=== PATIENT | female | born 1990 | race Caucasian/White ===

== ENCOUNTER 2018-10-03 12:35 | Emergency (ER) | payer MEDICAID, SELFPAY ==
[2018-10-03 12:36] VITALS: BP 111/75; PULSE 93; RESP 13; TEMP 36.6; O2SAT 99; BMI 21.7
--- NOTE | 2018-10-03 12:55 | CT_ITS ---
STUDY: CT ABDOMEN AND PELVIS WITHOUT CONTRAST REASON FOR EXAM: Female, 27 years old. Nausea and vomiting. RADIATION DOSAGE (If Supplied By Facility): CTDIvol = ( 8.40 ) mGy, DLP = ( 414.13 ) mGycm TECHNIQUE: Transaxial images were obtained from the dome of the diaphragm to the symphysis pubis without oral contrast, and without intravenous contrast. Sagittal and coronal images were reconstructed. Individualized dose optimization techniques were used for this CT. COMPARISON: None. FINDINGS: The visualized lung bases are unremarkable. The visualized portions of the heart are within normal limits. Normal liver. Normal gallbladder and extrahepatic biliary system. Normal spleen. Normal pancreas. Normal bilateral adrenal glands. Normal right kidney. Normal left kidney. Normal visualized stomach. Normal small intestine. Normal colon. The appendix is visualized and appears normal. Normal abdominal aorta. Normal inferior vena cava. Normal retroperitoneum. Normal urinary bladder. IUD is seen within the uterus. Normal abdominal wall. Normal osseous structures. CT/Abdomen/Pelvis without Cont IMPRESSION: No acute abnormality is seen. An IUD is seen within the uterus. Electronically Signed: Orville Mayfield, at 14:24 EDT , Service support ,
--- NOTE | 2018-10-03 13:00 | ED.VISSUMM ---
- ER Visit Summary Date of Service: 10/03/18 Chief Complaint: Abdominal and back pain History of Present Illness: The patient is a 27 F who presents with back and abdominal pain that is been getting worse over the past 4 days. Patient states she was seen recently diagnosed with a urinary tract infection. Patient states she is on Macrobid. Patient states she was also given prescription for Pyridium and Vicodin for pain. Patient describes her pain as throbbing and aching. Patient states the pain is over the lower abdomen and lower back. Patient states nothing makes it better or worse. Patient admits to a low-grade fever of 100. Patient admits to nausea but denies any vomiting. Physical Examination: Vital signs are stable. Patient is afebrile. Patient is in no acute distress. Oral mucosa is pink and moist. Neck is supple. Trachea is midline. There is no JVD noted. Heart was regular rate and rhythm. Lungs are clear and equal bilaterally. Abdomen is soft. Bowel sounds are normal. There is some lower abdominal tenderness. There is no rebound or guarding noted. Cranial nerves II through XII are intact. There are no focal motor or sensory deficit noted. Test Results: CBC, conference of metabolic profile, serum hCG, and urinalysis were obtained and were all within normal limits. CT scan of the abdomen and pelvis was obtained and was normal. Emergency Department Course and Treatment: Patient given IV fluids, morphine, and Zofran. Patient was feeling better on reevaluation. Patient was instructed to follow-up with her primary care physician in 5 to 7 days. Patient understood and was agreeable with the plan. All questions were answered. Disposition: Discharge home Impression: Abdominal pain This note was generated with [employer] dictation software. It may contain incorrect words, spelling, and punctuation that were not noted in review of the chart prior to signing ED Disposition - Plan for ED Patient: Disposition: Home or Assisted Living Diagnosis: Abdominal pain Instructions: ED Abdominal Pain Unkn Cause Referrals: French Ruiz III, MD [Primary Care Provider] - 5-7 Days
--- NOTE | 2018-10-03 13:04 | ED.DCSUM_ITS ---
- ER Visit Summary Date of Service: 10/03/18 Chief Complaint: Abdominal and back pain History of Present Illness: The patient is a 27 F who presents with back and abdominal pain that is been getting worse over the past 4 days. Patient states she was seen recently diagnosed with a urinary tract infection. Patient states she is on Macrobid. Patient states she was also given prescription for Pyridium and Vicodin for pain. Patient describes her pain as throbbing and aching. Patient states the pain is over the lower abdomen and lower back. Patient states nothing makes it better or worse. Patient admits to a low-grade fever of 100. Patient admits to nausea but denies any vomiting. Physical Examination: Vital signs are stable. Patient is afebrile. Patient is in no acute distress. Oral mucosa is pink and moist. Neck is supple. Trachea is midline. There is no JVD noted. Heart was regular rate and rhythm. Lungs are clear and equal bilaterally. Abdomen is soft. Bowel sounds are normal. There is some lower abdominal tenderness. There is no rebound or guarding no philly. Cranial nerves II through XII are intact. There are no focal motor or sensory deficit noted. Test Results: CBC, conference of metabolic profile, serum hCG, and urinalysis were obtained and were all within normal limits. CT scan of the abdomen and pelvis was obtained and was normal. Emergency Department Course and Treatment: Patient given IV fluids, morphine, and Zofran. Patient was feeling better on reevaluation. Patient was instructed to follow-up with her primary care physician in 5 to 7 days. Patient understood and was agreeable with the plan. All questions were answered. Disposition: Discharge home Impression: Abdominal pain This note was generated with [employer] dictation software. It may contain incorrect words, spelling, and punctuation that were not noted in review of the chart prior to signing ED Disposition - Plan for ED Patient: Disposition: Home or Assisted Living Diagnosis: Abdominal pain Instructions: ED Abdominal Pain Unkn Cause Referrals: French Ruiz III, MD [Primary Care Provider] - 5-7 Days
[2018-10-03 13:16] LABS: Absolute Lymphocyte Count 2.21 X10^3/ul (0.83-4.51); Absolute Neutrophil Count 3.1 X10^3/uL (2.0-7.7); Basophil# 0.02 X10^3/uL; Basophil% 0.3 % (0-1); Eosinophil# 0.09 X10^3/uL; Eosinophils% 1.5 % (0-5); Hematocrit 42.4 % (37-47); Hemoglobin 14.5 g/dl (12.0-15.0); Lymphocyte # 2.21 X10^3/ul (4.0); Lymphocyte % 37.1 % (19-41); Mean Corp Hgb Conc 34.2 g/gl (32-36); Mean Corpuscular Hgb 30.8 pg (27.0-32.0); Monocyte# 0.56 X10^3/uL; Monocyte% 9.4 % (0-10); Neutrophil # 3.07 X10^3/uL (2.7-7.7); Neutrophil % 51.7 % (47-70); Platelet Count 265 K/mm3 (150-450); RBC Distribution Width CV 12.4 % (11.6-14.6); RBC Distribution Width SD 40.5 fl (35.1-43.9); Red Blood Count 4.71 M/mm3 (4.2-5.4)
[2018-10-03 13:18] LABS: POSITIVE COUNT NO; POSITIVE DIFFERENTIAL NO; POSITIVE MORPHOLOGY NO
[2018-10-03] MEDS: 0.9% Normal Saline 1,000 ML 1000 ML IV (13:23)
[2018-10-03] MEDS: Ondansetron 4 MG/2 ML Vial IV (13:23)
[2018-10-03] MEDS: Morphine 4 MG/ML Syringe IV (13:23)
[2018-10-03 13:29] VITALS: BP 98/62; PULSE 60; RESP 15; O2SAT 98
[2018-10-03 13:31] LABS: ALB/GLOB Ratio 1.2 RATIO (0.9-2.4); AST(SGOT) 25 U/L (15-37); Alanine Aminotransfer ALT/SGPT 91 U/L (13-56); Albumin, Serum 4.7 g/dL (3.2-5.0); Alkaline Phosphatase 160 U/L (45-117); Anion Gap 4 (5-15); BUN 12 mg/dL (7-18); BUN/Creat Ratio 14.9 RATIO (10-20); Calcium,Total 9.6 mg/dL (8.5-10.1); Chloride 103 mmol/L (98-107); Creatinine, Serum 0.81 mg/dL (0.55-1.02); EST Glomerular Filtration Rate 89 mL/min (>60); Est Glom Filt Rate - Afr Amer 108 mL/min (>60); Estimated Creatinine Clearance 104.31 ml/min; Glucose 95 mg/dL (74-106); Lipase 96 U/L (73-393); Potassium 3.8 mmol/L (3.5-5.1); Protein, Total 8.7 g/dL (6.4-8.2); Sodium Level 137 mmol/L (136-145)
[2018-10-03 13:45] LABS: Internal QC Validated? YES +Cl - CLEAR BKGD; Pregnancy, Serum, hCG Quali. NEGATIVE Negative
--- NOTE | 2018-10-03 15:21 | ED.RN ---
after multiple attempts to obtain urine pt was able to provide a sample. no cath required. waiting for resulted. pt walked back to bed. vonnie kumar rn [id number]
[2018-10-03 15:23] LABS: Mucous, Urine 0 SEEN /hpf (<or=2+); Red Blood Cells-Urine 0 SEEN /hpf (0-5)
[2018-10-03 15:46] LABS: Color, Urine Yellow (Yellow); Glucose, Dipstick Normal (Normal); Ketone-Dipstick Negative (Negative); Leukocyte Esterase-Dipstick 100 /ul (Negative); Nitrite-Dipstick Negative (Negative); Occult Blood-Urine Negative /ul (Negative); Protein-Dipstick Negative (Negative); Specific Gravity, Urine 1.005 (1.002-1.030); Urine Bilirubin Dipstick Negative (Negative); Urine Clarity Sl. Cloudy (Clear); Urine Urobilinogen Normal (Normal)
[2018-10-03 15:52] LABS: Bacteria RARE /hpf (None Seen); Squamous Epithelial Cells - UA 0-5 SEEN /hpf (5-10); White Blood Cells 0-5 SEEN /hpf (0-5)
[2018-10-03 16:45] VITALS: BP 116/74; PULSE 61; RESP 15; O2SAT 99
== END 2018-10-03 16:47 | disposition home or self-care (01) ==
PROVIDERS: Emergency Provider Emergency Medicine; Family Provider Family Medicine; PCP Family Medicine
DX: R10.30 Lower abdominal pain, unspecified (principal); M54.5 Low back pain
CPT/HCPCS: 74176; 80053; 81001; 83690; 84703; 85025; 96361; 96374; 96375; 99284; J7030; A4216; J2405

== ENCOUNTER 2021-02-09 12:13 | Emergency (ER) | payer MEDICAID, SELFPAY ==
[2021-02-09 12:14] VITALS: BP 106/78; PULSE 106; RESP 20; TEMP 36.4; O2SAT 98; BMI 21.2
[2021-02-09 12:16] VITALS: BP 106/78; PULSE 106; RESP 20; TEMP 36.4; O2SAT 98
--- NOTE | 2021-02-09 12:39 | RAD_ITS ---
STUDY: X-RAY CHEST REASON FOR EXAM: Female, 30 years old. covid, L cp, sob TECHNIQUE: Single AP portable view of the chest. COMPARISON: Comparison is made with prior study dated 01/22/2014. FINDINGS: Faint infiltrate is seen in the right upper lobe as well as in the right middle lobe. There is no demonstrated pleural abnormality. Normal size heart. Normal mediastinum and marisela. Normal visualized pulmonary arteries. Normal visualized aortic arch and descending thoracic aorta. Normal visualized thoracic spine. Normal visualized ribs, clavicles, and shoulders. There is no demonstrated abnormality of the visualized soft tissue structures of the upper abdomen. RAD/Chest 1 View (Portable) IMPRESSION: Focal right upper lobe and right lower lobe infiltrates. Electronically Signed: Orville Mayfield MD at 13:39 EDT , Service support ,
[2021-02-09] MEDS: Ketorolac 15 MG/ML Vial IV (12:56)
[2021-02-09 13:11] LABS: Absolute Lymphocyte Count 0.73 X10^3/uL (0.83-4.51); Absolute Neutrophil Count 1.1 X10^3/uL (2.0-7.7); Hematocrit 42.6 % (37-47); Hemoglobin 14.1 g/dL (12.0-15.0); Lymphocyte # 0.73 X10^3/ul (0.83-4.51); Lymphocyte % 33.6 % (19-41); Mean Corp Hgb Conc 33.1 g/dL (32-36); Mean Corpuscular Hgb 30.5 pg (27.0-32.0); Mean Corpuscular Volume 92.2 fL (81-99); Mean Platelet Vol. 11.2 fl (6.2-12.0); Monocyte# 0.29 X10^3/uL; Monocyte% 13.4 % (0-10); NRBC Flagged by Analyzer 0 % (0-5); Neutrophil # 1.14 X10^3/uL (2.7-7.7); Neutrophil % 52.5 % (47-70); Platelet Count 103 K/mm3 (150-450); RBC Distribution Width CV 11.2 % (11.6-14.6); RBC Distribution Width SD 37.9 fl (35.1-43.9); Red Blood Count 4.62 M/mm3 (4.2-5.4); White Blood Count 2.2 K/mm3 (4.4-11.0)
[2021-02-09 13:16] VITALS: BP 98/70; PULSE 86; RESP 16; TEMP 37.2; O2SAT 94
[2021-02-09 13:22] LABS: D-Dimer Quantitative (DVT/PE) 0.31 FEU/ug/m (0.27-0.49)
[2021-02-09 13:30] LABS: Anion Gap 4 (5-15); BUN 8 mg/dL (7-18); BUN/Creat Ratio 11.1 RATIO (10-20); Calcium,Total 8.5 mg/dL (8.5-10.1); Chloride 105 mmol/L (98-107); Creatinine, Serum 0.72 mg/dL (0.55-1.02); EST Glomerular Filtration Rate 100 mL/min (>60); Est Glom Filt Rate - Afr Amer 121 mL/min (>60); Estimated Creatinine Clearance 113.49 ml/min; Glucose 91 mg/dL (74-106); Potassium 3.6 mmol/L (3.5-5.1); Sodium Level 137 mmol/L (136-145); Troponin-I HS 5 pg/mL (3.0-54.0)
--- NOTE | 2021-02-09 14:59 | EX.ED.VIS.UR ---
HPI HPI - URI History of Present Illness Chief Complaint: Shortness of Breath Informant: patient Onset/Context/Timing Onset: Days (5) Context: Gradual Onset Timing: Continuous Quality: sharp Location: left chest w/o radiation Current Severity: Moderate Maximum Severity: Moderate Worsened by: - (deep inspiration) Relieved by: - (breathing easy) Associated Symptoms Associated Symptoms: Positive for Nasal Congestion, Headache, Myalgias, Diarrhea, Shortness of Breath (mild when taking deep breath only), Chest Pain, Nonproductive cough and - (subj fevers/chills); Negative for Sinus Pressure, Nausea, Vomiting and Hemoptysis Narrative Narrative: Patient had a family member that had Covid, she started getting symptoms so did a home rapid test that was positive. She now starting to have pleuritic left-sided chest discomfort started yesterday. Symptoms started 5 days ago. She denies any significant past medical history. ROS ROS ED Constitutional Constitutional ED: Reports body ache(s), chills, fatigue, fever(s), headache(s) and malaise Eyes Eyes: Denies change in vision or diplopia ENT ENT ED: Denies rhinorrhea or sore throat Cardiovascular Cardiovascular: Reports chest pain; Denies palpitations Respiratory/Chest Respiratory/Chest: Reports cough, dyspnea and dyspnea on exertion Gastrointestinal Gastrointestinal: Reports diarrhea; Denies abdominal pain, nausea or vomiting Genitourinary Genitourinary ED: Denies dysuria or hematuria Musculoskeletal Musculoskeletal: Denies back pain or neck pain Integumentary Denies abscess or rash Neurologic Neurologic: Reports headache(s); Denies paresthesias or weakness Psychiatric Psychiatric: Denies anxiety or suicidal thoughts PFSH PFSH Medical History no medical history no medical history Home Medications hydrocodone-acetaminophen [[place] 5-325 Tablet] 1 ea PO Q6H PRN PRN 10/03/18 [History Last Taken Unknown] nitrofurantoin monohyd/m-cryst [Macrobid 100 mg Capsule] 100 mg PO BID 10/03/18 [History Last Taken 10/03/18] phenazopyridine 200 mg PO TID 10/03/18 [History Last Taken Unknown] albuterol sulfate [Ventolin HFA] 1 - 2 puff INHALATION Q4H PRN PRN #1 inhaler 02/09/21 [Rx Last Taken Unknown] Allergy/AdvReac Type Severity Reaction Status Date / Time No Known Allergies Allergy Verified 10/03/18 12:39 Social History Smoking Status: Never smoker EXAM Physical Exam Const Vital Signs: 02/09/21 12:14 02/09/21 12:16 02/09/21 13:16 Temperature 97.6 F L 97.6 F L 99 F Temperature Source Temporal Temporal Oral Pulse Rate 106 H 106 H 86 Respiratory Rate 20 H 20 H 16 Blood Pressure 106/78 106/78 98/70 Blood Pressure Mean 87 87 79 Pulse Ox 98 98 94 Oxygen Delivery Method Room Air Room Air Room Air Positive well nourished and well developed Constitutional Narrative: well-appearing, no distress General Appearance ED: well developed and NAD HEENT Reports moist mucous membranes normocephalic and atraumatic Eyes PERRL and EOMs intact bilaterally Neck full ROM and supple Resp normal respiratory effort and clear to auscultation bilaterally Cardio regular rate, regular rhythm and no murmurs Rate: Negative for tachycardic GI non-tender and non-distended Auscultation: normoactive bowel sounds Palpation: soft Back/Spine no CVA tenderness General Back: other FROM Extremity normal to inspection and no calf tenderness General Extremety ED: Negative for edema, pulses abnormal or tenderness General Extremity: Negative for edema or pulses abnormal Neuro oriented x3, CN's II-XII intact bilaterally and no sensory deficits noted Sensorium / Orientation: awake and alert Motor Exam: strength 5/5 throughout Skin no rashes or lesions noted and no wounds MDM MDM MDM Narrative Medical decision making narrative: With a D-dimer within normal limits, the patient does not require advanced imaging. She does have some evidence of pneumonia on chest x-ray, but with the leukopenia she is having this is all consistent with Covid. She is oxygenating well. She does not meet criteria for monoclonal antibody infusion. At this time supportive care is indicated. She was given Toradol which helped minimally with her chest discomfort some with her myalgias and headache. She is prescribed an albuterol MDI, no indication for steroids or antibiotics at this time. Under the circumstances I do not think this is bacterial in etiology. Since she is not a candidate for the above treatment she does not require repeat official test to be done here, I am sure this is Covid. She was given appropriate discharge instructions reasons to return, including watching her pulse oximetry. Lab Data Attestation: I reviewed the patient's lab results. Labs: Laboratory Results - last 24 hr 02/09/21 02/09/21 02/09/21 12:55 12:55 12:55 WBC 2.2 L RBC 4.62 Hgb 14.1 Hct 42.6 MCV 92.2 MCH 30.5 MCHC 33.1 RDW Std Deviation 37.9 RDW Coeff of Sallie 11.2 L Plt Count 103 L MPV 11.2 Immature Gran % (Auto) 0.500 Neut % (Auto) 52.5 Lymph % (Auto) 33.6 [place] % (Auto) 13.4 H Eos % (Auto) 0.0 Baso % (Auto) 0.0 Absolute Neuts (auto) 1.1 L Absolute Lymphs (auto) 0.73 L Nucleated RBC % 0 D-Dimer Quant (PE/DVT) 0.31 Sodium 137 Potassium 3.6 Chloride 105 Carbon Dioxide 28.0 Anion Gap 4 L BUN 8 Creatinine 0.72 Estim Creat Clear Calc 113.49 Est GFR (MDRD) Af Amer 121 Est GFR (MDRD) Non-Af 100 BUN/Creatinine Ratio 11.1 Glucose 91 Calcium 8.5 Troponin I High Sens 5 Radiography Diagnostic Testing: Radiology Impression Chest X-Ray 02/09/21 12:39 IMPRESSION: Focal right upper lobe and right lower lobe infiltrates. Electronically Signed: Orville Mayfield MD at 13:39 EDT , Service support , Discharge Plan Triage Chief Complaint: Shortness of Breath ED Provider: Anil Ortez Dx/Rx/DC Orders Clinical Impression: Atypical chest pain, Pneumonia due to COVID-19 virus Instructions: Coronavirus Disease 2019 (COVID-19): Caring for Yourself or Others Prescriptions: New albuterol sulfate [Ventolin HFA] 1 INHALER inhaler 1 - 2 puff inhalation Q4H PRN PRN (Reason: Wheezing) Qty: 1 RF: 0 No Action hydrocodone-acetaminophen [[place]] 1 EACH tablet 1 ea PO Q6H PRN PRN (Reason: Pain) RF: 0 phenazopyridine 200 MG tablet 200 mg PO TID RF: 0 nitrofurantoin monohyd/m-cryst [Macrobid] 100 MG capsule 100 mg PO BID RF: 0 Primary Care Provider: Deana Doshi Referrals: Deana Doshi, PA [Primary Care Provider] - As Needed Activity Restrictions/Additional Instructions: Try to get a home portable pulse oximeter and closely watch her oxygen levels periodically. If you stay below 90% for more than a minute or so, and/or you are feeling like your breathing is getting worse, return to the emergency department for further evaluation. Disposition Disposition: Home, Self Care
[2021-02-09 15:22] VITALS: PULSE 82; RESP 16; O2SAT 96
== END 2021-02-09 15:28 | disposition home or self-care (01) ==
PROVIDERS: Emergency Provider Emergency Medicine; PCP Physician Assistant
DX: U07.1 COVID-19 (principal); J12.82 Pneumonia due to coronavirus disease 2019; R07.89 Other chest pain
CPT/HCPCS: 71045; 80048; 84484; 85025; 85379; 96374; 99283; A4216

== ENCOUNTER 2021-02-11 13:54 | Emergency (ER) | payer MEDICAID, SELFPAY ==
[2021-02-11 13:55] VITALS: BP 83/63; PULSE 93; RESP 20; TEMP 37.6; O2SAT 98; BMI 21.2
[2021-02-11 14:32] VITALS: RESP 18; O2SAT 97
[2021-02-11 14:38] VITALS: BP 103/71; PULSE 80; RESP 20; TEMP 37.6; O2SAT 92
[2021-02-11 14:45] LABS: Absolute Lymphocyte Count 0.75 X10^3/uL (0.83-4.51); Absolute Neutrophil Count 2.3 X10^3/uL (2.0-7.7); Hematocrit 39.8 % (37-47); Hemoglobin 13.4 g/dL (12.0-15.0); Lymphocyte # 0.75 X10^3/ul (0.83-4.51); Lymphocyte % 23.2 % (19-41); Mean Corp Hgb Conc 33.7 g/dL (32-36); Mean Corpuscular Hgb 30.8 pg (27.0-32.0); Mean Corpuscular Volume 91.5 fL (81-99); Mean Platelet Vol. 11.1 fl (6.2-12.0); Monocyte# 0.18 X10^3/uL; Monocyte% 5.6 % (0-10); NRBC Flagged by Analyzer 0 % (0-5); Neutrophil # 2.29 X10^3/uL (2.7-7.7); Neutrophil % 70.9 % (47-70); Platelet Count 101 K/mm3 (150-450); RBC Distribution Width CV 11.1 % (11.6-14.6); RBC Distribution Width SD 37.3 fl (35.1-43.9); Red Blood Count 4.35 M/mm3 (4.2-5.4); White Blood Count 3.2 K/mm3 (4.4-11.0)
--- NOTE | 2021-02-11 14:51 | RAD_ITS ---
HISTORY: SOB. TECHNIQUE: XR Chest 1 View. EXAM TIME: 2021-02-11 14:34. # of images incl. paperwork: 1. COMPARISON:02/09/2021. FINDINGS: LINES/DEVICES: None. CARDIOMEDIASTINAL BORDERS: Stable. LUNGS: Increased consolidation in the right upper and lower lung. New nodular regions of consolidation in the left mid and lower lung. PLEURA: No pleural effusion or pneumothorax. RAD/Chest 1 View IMPRESSION: Increased bilateral pneumonia. Recommend follow-up to resolution. at 1532 Reported and signed by: Angelic Rand MD Electronically Signed: Angelic Rand MD at 15:31 EDT Tel , Service support ,
[2021-02-11 14:56] LABS: Anion Gap 6 (5-15); BUN 7 mg/dL (7-18); BUN/Creat Ratio 9.7 RATIO (10-20); Calcium,Total 8.3 mg/dL (8.5-10.1); Chloride 103 mmol/L (98-107); Creatinine, Serum 0.72 mg/dL (0.55-1.02); EST Glomerular Filtration Rate 100 mL/min (>60); Est Glom Filt Rate - Afr Amer 121 mL/min (>60); Estimated Creatinine Clearance 113.49 ml/min; Glucose 93 mg/dL (74-106); Potassium 3.3 mmol/L (3.5-5.1); Sodium Level 136 mmol/L (136-145)
--- NOTE | 2021-02-11 15:52 | ED.VIS.DYS ---
HPI History of Present Illness Chief Complaint: Shortness of Breath Informant: patient Onset/Context/Timing Onset: Days (6) Context: gradual Timing: Continuous Quality: Positive for Dyspnea on exertion Associated Symptoms fever and sore throat; Negative for cough, rhinorrhea, ear pain, clear sputum, white sputum, yellow sputum or green sputum Chest Pain: Positive for None Narrative Narrative: Patient presents with weakness and fevers. Patient states she has been having Covid symptoms for the past 6 days. Patient tested positive for Covid 5 days ago. Patient states she feels weaker. Patient admits to nausea but denies any vomiting. Patient admits to some pain in her chest and shortness of breath. Patient denies any cough. Patient states her fevers have been up to 103 at home. Patient admits to a sore throat. Patient admits to general myalgias. PFSH PFSH Home Medications NK 02/11/21 [History Last Taken Unknown] ondansetron 4 mg PO Q8H PRN PRN #10 tab 02/11/21 [Rx Last Taken Unknown] Allergy/AdvReac Type Severity Reaction Status Date / Time No Known Allergies Allergy Verified 02/11/21 13:55 Social History Smoking Status: Never smoker ROS ROS ED Constitutional Constitutional ED: Reports fever(s); Denies chills Eyes Eyes: Denies blurry vision or change in vision ENT ENT ED: Reports sore throat; Denies rhinorrhea Cardiovascular Cardiovascular: Reports chest pain; Denies palpitations Respiratory/Chest Respiratory/Chest: Reports dyspnea; Denies cough Gastrointestinal Gastrointestinal: Reports nausea; Denies vomiting Genitourinary Genitourinary ED: Denies dysuria or hematuria Musculoskeletal Musculoskeletal: Reports back pain, myalgias and neck pain Integumentary Denies abscess or rash Neurologic Neurologic: Reports headache(s); Denies weakness Allergic/Immunologic Allergic/Immunologic ED: Denies mouth swelling or urticaria EXAM Physical Exam Const Vital Signs: 02/11/21 13:55 02/11/21 14:32 02/11/21 14:38 Temperature 99.7 F H 99.7 F H Temperature Source Temporal Temporal Pulse Rate 93 80 Respiratory Rate 20 H 18 20 H Respiratory Effort Short of Breath Labored Respiratory Depth Normal Respiratory Pattern Normal Blood Pressure 83/63 L 103/71 Blood Pressure Mean 69 81 Pulse Ox 98 97 92 Oxygen Delivery Method Room Air Room Air Room Air Positive well nourished and well developed General Appearance ED: well developed HEENT Reports moist mucous membranes Neck supple and no JVD Resp normal respiratory effort Auscultation: diminished lung sounds diffuse Cardio regular rate, regular rhythm and no murmurs GI normal to inspection, nondistended, normoactive bowel sounds and non-tender Palpation: soft Extremity normal to inspection General Extremety ED: Negative for edema or tenderness General Extremity: Negative for edema Neuro oriented x3, CN's II-XII intact bilaterally and no sensory deficits noted Sensorium / Orientation: alert Motor Exam: strength 5/5 throughout Psych mental status grossly normal Skin no rashes or lesions noted MDM MDM MDM Narrative Medical decision making narrative: CBC and basic metabolic profile were within normal limits. COVID-19 rapid antigen was obtained and it was positive. Portable chest x-ray was obtained. There is 1 view. On my interpretation, there is increasing bilateral lower lobe pneumonia. There is no cardiomegaly. There is no pneumothorax. Bony thorax is normal. Radiologist also interpreted the x-ray and agrees. Patient is not hypoxic here in the emergency department. Patient was instructed to drink small amounts of fluids. Patient was instructed to follow-up with her primary care physician in 3 to 5 days. Patient was given albuterol inhaler on her previous visit. Patient was instructed to continue this every 4 hours as needed. Patient was given a prescription for Zofran. Patient was instructed to take Mucinex DM. Patient understood and was agreeable with the plan. All questions were answered. Lab Data Labs: Laboratory Results - last 24 hr 02/11/21 02/11/21 14:35 14:35 WBC 3.2 L RBC 4.35 Hgb 13.4 Hct 39.8 MCV 91.5 MCH 30.8 MCHC 33.7 RDW Std Deviation 37.3 RDW Coeff of Sallie 11.1 L Plt Count 101 L MPV 11.1 Immature Gran % (Auto) 0.300 Neut % (Auto) 70.9 H Lymph % (Auto) 23.2 [place] % (Auto) 5.6 Eos % (Auto) 0.0 Baso % (Auto) 0.0 Absolute Neuts (auto) 2.3 Absolute Lymphs (auto) 0.75 L Nucleated RBC % 0 Sodium 136 Potassium 3.3 L Chloride 103 Carbon Dioxide 27.0 Anion Gap 6 BUN 7 Creatinine 0.72 Estim Creat Clear Calc 113.49 Est GFR (MDRD) Af Amer 121 Est GFR (MDRD) Non-Af 100 BUN/Creatinine Ratio 9.7 L Glucose 93 Calcium 8.3 L Radiography Chest X-Ray - ED: 1 View, Read by ED Physician, Read by Radiologist, Right Infiltrate and Left Infiltrate Diagnostic Testing: Radiology Impression Chest X-Ray 02/11/21 14:51 IMPRESSION: Increased bilateral pneumonia. Recommend follow-up to resolution. at 1532 Reported and signed by: Angelic Rand MD Electronically Signed: Angelic Rand MD at 15:31 EDT Tel , Service support , Discharge Plan Triage Chief Complaint: Shortness of Breath ED Provider: David Jacinto Dx/Rx/DC Orders Clinical Impression: Pneumonia due to COVID-19 virus Instructions: Coronavirus Disease 2019 (COVID-19): Caring for Yourself or Others Prescriptions: New ondansetron [ondansetron] 4 MG tablet 4 mg PO Q8H PRN PRN (Reason: Nausea) Qty: 10 RF: 0 No Action NK RF: 0 Primary Care Provider: Deana Doshi Referrals: Deana Doshi PA [Primary Care Provider] - 3-5 Days Disposition Disposition: Home, Self Care
[2021-02-11 16:28] VITALS: BP 101/62; PULSE 72; RESP 16; O2SAT 97
== END 2021-02-11 16:29 | disposition home or self-care (01) ==
PROVIDERS: Emergency Provider Emergency Medicine; PCP Physician Assistant
DX: U07.1 COVID-19 (principal); J12.82 Pneumonia due to coronavirus disease 2019
CPT/HCPCS: 71045; 80048; 85025; 94760; 99283; A4216

== ENCOUNTER → 2021-02-14 | Outpatient (CLI) | payer MEDICAID, SELFPAY ==
[2021-02-14 14:24] LABS: D-Dimer Quantitative (DVT/PE) 0.46 FEU/ug/m (0.27-0.49)
== END | disposition home or self-care (01) ==
LOC: LABSPEC 14:04
PROVIDERS: PCP Physician Assistant; Referring Provider Physician Assistant; Visit Provider Physician Assistant
DX: U07.1 COVID-19 (principal); J12.82 Pneumonia due to coronavirus disease 2019; R09.02 Hypoxemia; R07.81 Pleurodynia
CPT/HCPCS: 85379